=== PATIENT | female | born 1940 | race Hispanic/Latino ===

== ENCOUNTER 2021-09-01 13:10 | Emergency (ER) | payer OTHER ==
[~2021-09-01] VITALS: Ht 160 cm; Wt 77.1 kg
[2021-09-01] MEDS ORDERED: ZESTRIL20 MG PO (13:31)
[2021-09-01] MEDS ORDERED: ONDANSETRON ODT4 MG PO (16:40)
[2021-09-01] MEDS ORDERED: HYDROCODON-ACE1 EA10 PO (16:40)
== END 2021-09-01 17:48 | disposition home or self-care (01) ==
LOC: ED 13:10
DX: S43.004A Unspecified dislocation of right shoulder joint, initial encounter (principal); I10 Essential (primary) hypertension; W19.XXXA Unspecified fall, initial encounter; Z79.899 Other long term (current) drug therapy
CPT/HCPCS: 23650; 73020; 73030; 73060; 99283-25; A9270; J2405; J2704; J3010; J7030